=== PATIENT | female | born 1970 | race Hispanic/Latino ===

== ENCOUNTER 2021-10-22 11:57 | Emergency (ER) | payer BC, OTHER ==
[2021-10-22] MEDS ORDERED: FAMOTIDINE 20 MG/2 ML VIAL IV ONE (13:57)
[2021-10-22] MEDS ORDERED: NA CHLORIDE 0.9% 1,000 ML ONE (13:57)
[2021-10-22] MEDS ORDERED: ONDANSETRON 4 MG/2 ML VIAL ONE (13:57)
[2021-10-22 14:13] LABS: Absolute Lymphocytes (CBC) 0.8 K/uL (0.7-4.9); Hematocrit 43.6 % (36.0-45.0); Lymphocytes % 16.8 % (15.3-44.8); RBC Red Blood Cell Count 4.99 M/uL (3.86-4.86)
[2021-10-22 14:17] LABS: Protime INR 1.12
[2021-10-22 14:30] LABS: ALT/SGPT 94 U/L (12-78); AST/SGOT 34 U/L (15-37); Albumin 3.8 g/dL (3.4-5.0); Alkaline Phosphatase 189 U/L (45-117); BUN Blood Urea Nitrogen 13 mg/dL (7-18); Bicarbonate 28 mmol/L (21-32); Bilirubin Direct 0.1 mg/dL (0-0.2); Bilirubin Total 0.3 mg/dL (0.2-1.0); Glucose Level 135 mg/dL (74-106); Lipase 70 U/L (73-393); Magnesium 2.6 mg/dL (1.8-2.4); Potassium 3.7 mmol/L (3.5-5.1); Protein, Total 8.5 g/dL (6.4-8.2); Sodium Level 139 mmol/L (136-145)
--- NOTE | 2021-10-22 14:36 | RAD REPORT ---
EXAM DESCRIPTION: RAD - Chest Single View - 10/22/2021 2:27 pm CLINICAL HISTORY: COUGH COMPARISON: None TECHNIQUE: AP portable chest image was obtained 10/22/2021 2:27 pm . FINDINGS: Lungs are clear. Heart and vasculature are normal. No measurable pleural effusion and no p neumothorax. No acute bony abnormality seen. No acute aortic findings suspected. IMPRESSION: No acute cardiopulmonary process.
[2021-10-22 14:40] LABS: Troponin High Sensitivity < 3.0 pg/mL (<58.9)
[2021-10-22 15:46] LABS: SARS-COV-2 RT PCR NEGATIVE (NEGATIVE)
[2021-10-22 16:50] LABS: Urine Blood Trace-intact (Negative); Urine Glucose Negative (Negative); Urine Protein Negative (Negative); Urine Specific Gravity >=1.030 (1.005-1.030)
[2021-10-22 16:57] LABS: Urine Bacteria <20 /HPF (<20); Urine Mucus 1+ /HPF (NONE SEEN); Urine RBC <5 /HPF (NONE SEEN)
[2021-10-22 16:58] LABS: Urine Amorphous Sediment TRACE /HPF (NONE SEEN)
--- NOTE | 2021-10-22 17:16 | RAD REPORT ---
EXAM DESCRIPTION: CT - Abdomen Pelvis W Contrast - 10/22/2021 4:57 pm CLINICAL HISTORY: NAUSEA / VOMITING COMPARISON: No comparisons TECHNIQUE: Biphasic, helical CT imaging of the abdomen and pelvis was performed following 100 ml non -ionic IV contrast. No oral contrast administered. All CT scans are performed using dose optimization technique as appropriate and may include automated exposure control or mA/KV adjustment according to patient size. FINDINGS: No suspicious findings in the lung bases. The liver, spleen, and pancreas show no suspicious findings. Gallbladder and biliary tree are also wi thout suspicious finding. Symmetric renal function is seen with no hydronephrosis or suspicious renal mass. No pyelonephritis o r acute parenchymal process. No bladder abnormalities. No adrenal abnormalities. Uterus and ovaries s how no suspicious findings. No dilated bowel loops or bowel wall thickening. Appendix is normal. Patient has prominent for age si gmoid diverticulosis but no diverticulitis finding. Mild mucosal level inflammatory changes can be oc cult on CT imaging. A few small sub centimeter mesenteric lymph nodes are present. No free air, free fluid or inflammatory stranding. No hernia, mass or bulky lymphadenopathy. No suspicious bony findings. IMPRESSION: Contrast enhanced CT abdomen and pelvis showing no acute or emergent finding.
--- NOTE | 2021-10-22 17:50 | ER ---
Nurse's Notes [facility] Name: Maya Mac Age: 51 yrs Sex: Female : 1970 Arrival Date: 10/22/2021 Time: 11:59 Bed 20 Private MD: Robert Hameed Diagnosis: Nausea with vomiting, unspecified;Influenza due to identified novel influenza A virus Presentation: 10/22 12:19 Chief complaint: Patient states: "I've been feeling weak for a few days and im having ab2 n/v." Pt denies any pain. Pt denies fever/chills. Coronavirus screen: Vaccine status: Patient reports receiving the 2nd dose of the covid vaccine. Client denies travel out of the [place] in the last 14 days. nausea, vomiting. Client presents with at least one sign or symptom that may indicate coronavirus-19. Standard/surgical mask placed on the client. Provider contacted for isolation considerations. Ebola Screen: Patient negative for fever greater than or equal to 101.5 degrees Fahrenheit, and additional compatible Ebola Virus Disease symptoms Patient denies exposure to infectious person. Patient denies travel to an Ebola-affected area in the 21 days before illness onset. No symptoms or risks identified at this time. Initial Sepsis Screen: Does the patient meet any 2 criteria? No. Patient's initial sepsis screen is negative. Does the patient have a suspected source of infection? No. Patient's initial sepsis screen is negative. Risk Assessment: Do you want to hurt yourself or someone else? Patient reports no desire to harm self or others. Onset of symptoms is unknown. 12:19 Method Of Arrival: Wheelchair ab2 12:19 Acuity: NAIDA 3 ab2 Triage Assessment: 12:23 General: Appears in no apparent distress. uncomfortable, Behavior is calm, cooperative, ab2 appropriate for age. Pain: Denies pain. Neuro: Level of Consciousness is awake, alert, obeys commands, Oriented to person, place, time, situation, Appropriate for age. Cardiovascular: No deficits noted. Denies chest pain, shortness of breath, Patient's skin is warm and dry. Respiratory: Airway is patent Respiratory effort is even, unlabored, Respiratory pattern is regular, symmetrical. GI: Pt is actively vomiting clear fluid, Reports intolerance of fluids, intolerance of food, nausea, vomiting. Historical: - Allergies: 12:22 No Known Allergies; ab2 - PMHx: 12:22 None; ab2 - PSHx: 12:22 None; ab2 - Immunization history:: Adult Immunizations up to date. - Social history:: Smoking status: Patient denies any tobacco usage or history of. Screenin:41 Abuse screen: Denies threats or abuse. Denies injuries from another. Nutritional camacho screening: No deficits noted. Tuberculosis screening: No symptoms or risk factors identified. Fall Risk None identified. Assessment: 13:41 General: Appears in no apparent distress. Behavior is calm, cooperative. Pain: camacho Complains of pain in abdomen. GI: Reports nausea, vomiting. Vital Signs: 12:19 BP 122 / 68; Pulse 92; Resp 18; Temp 98.8(TE); Pulse Ox 98% on R/A; Weight 102.06 kg; ab2 Height 5 ft. 3 in. (160.02 cm); Pain 0/10; 14:10 BP 128 / 75; Pulse 86; Resp 17; Pulse Ox 98% on R/A; camacho 15:49 BP 111 / 63; Pulse 79; Resp 16; Pulse Ox 99% on R/A; camacho 12:19 Body Mass Index 39.86 (102.06 kg, 160.02 cm) ab2 ED Course: 11:59 Patient arrived in ED. as 12:02 Robert Hameed DO is Private Physician. as 12:22 Triage completed. ab2 12:23 Arm band placed on left wrist. ab2 13:11 Albino Campos PA is PHCP. cp 13:11 Balwinder Chandler MD is Attending Physician. cp 13:41 Patient has correct armband on for positive identification. Bed in low position. camacho 13:41 No provider procedures requiring assistance completed. camacho 14:09 Basic Metabolic Panel Sent. camacho 14:09 CBC with Diff Sent. camacho 14:09 LFT's Sent. camacho 14:09 Magnesium Sent. camacho 14:09 PT-INR Sent. camacho 14:10 Troponin HS Sent. camacho 14:28 XRAY Chest (1 view) In Process Unspecified. EDMS 14:36 EKG done, by member of technical staff. 16:17 Elizabeth Rees, RN is Primary Nurse. camacho 16:59 CT Abd/Pelvis - IV Contrast Only In Process Unspecified. EDMS 17:49 Robert Hameed DO is Referral Physician. cp 18:23 IV discontinued, intact, Pressure dressing applied. camacho Administered Medications: 14:08 Drug: Zofran (Ondansetron) 4 mg Route: IVP; Site: right antecubital; camacho 14:10 Follow up: Response: No adverse reaction camacho 14:08 Drug: Pepcid (famotidine) 20 mg Route: IVP; Site: right antecubital; camacho 14:10 Follow up: Response: No adverse reaction camacho 14:09 Drug: NS 0.9% 1000 ml Route: IV; Rate: 1000 ml/hr; Site: right antecubital; camacho Outcome: 17:49 Discharge ordered by MD. cp 18:22 Discharged to home camacho 18:22 Condition: good 18:22 Discharge instructions given to patient, Prescriptions given X 1. 18:23 Patient left the ED. camacho Signatures: Dispatcher [employer] EDVT Maeve Hook Corey, PA PA cp Marsh, Wendy wm Au-Stager, Heather, RN RN camacho Holden Woodson
--- NOTE | 2021-10-22 17:50 | EDPHYS ---
Physician Documentation [facility] Name: Maya Mac Age: 51 yrs Sex: Female : 1970 Arrival Date: 10/22/2021 Time: 11:59 Bed 20 Private MD: Robert Hameed ED Physician Balwinder Chandler HPI: 10/22 14:00 This 51 yrs old Female presents to ER via Wheelchair with complaints of cp Nausea/Vomiting, Weakness. 14:00 The patient presents to the emergency department with nausea, that is moderate, cp vomiting, that is intermittent. Onset: The symptoms/episode began/occurred this morning. Possible causes: unknown. Associated signs and symptoms: Pertinent positives: anorexia, cough, sore throat, rhinorrhea, Pertinent negatives: constipation, diarrhea, fever. Severity of symptoms: in the emergency department the symptoms are unchanged. Historical: - Allergies: 12:22 No Known Allergies; ab2 - PMHx: 12:22 None; ab2 - PSHx: 12:22 None; ab2 - Immunization history:: Adult Immunizations up to date. - Social history:: Smoking status: Patient denies any tobacco usage or history of. ROS: 14:05 Constitutional: Positive for poor PO intake, Negative for body aches, chills, fever. cp 14:05 Eyes: Negative for injury, pain, redness, and discharge. cp 14:05 ENT: Positive for rhinorrhea, sore throat. 14:05 Cardiovascular: Negative for chest pain, edema, palpitations. 14:05 Respiratory: Positive for cough, Negative for shortness of breath, wheezing. 14:05 Abdomen/GI: Positive for nausea and vomiting, anorexia, Negative for abdominal pain, diarrhea, constipation, hematemesis. 14:05 : Negative for urinary symptoms. 14:05 Skin: Negative for rash. 14:05 Neuro: Positive for weakness, Negative for altered mental status, headache, loss of consciousness, syncope. 14:05 All other systems are negative. Exam: 14:10 Constitutional: The patient appears in no acute distress, alert, awake, cp non-diaphoretic, non-toxic, well developed, well nourished, obese. 14:10 Head/Face: Normocephalic, atraumatic. cp 14:10 Eyes: Periorbital structures: appear normal, Conjunctiva: normal, no exudate, no injection, Sclera: no appreciated abnormality, Lids and lashes: appear normal, bilaterally. 14:10 ENT: External ear(s): are unremarkable, Nose: is normal, Mouth: Lips: moist, Oral mucosa: pink and intact, moist, Posterior pharynx: Airway: no evidence of obstruction, patent. 14:10 Chest/axilla: Inspection: normal. 14:10 Cardiovascular: Rate: normal, Rhythm: regular, Edema: is not appreciated, JVD: is not appreciated. 14:10 Respiratory: the patient does not display signs of respiratory distress, Respirations: normal, no use of accessory muscles, no retractions, labored breathing, is not present, Breath sounds: are clear throughout, no decreased breath sounds, no stridor, no wheezing. 14:10 Abdomen/GI: Inspection: abdomen appears normal, Palpation: abdomen is soft and non-tender, in all quadrants. 14:10 Neuro: Orientation: to person, place \\T\\ time. Mentation: is normal, Motor: moves all fours, strength is normal, Sensation: is normal. Vital Signs: 12:19 BP 122 / 68; Pulse 92; Resp 18; Temp 98.8(TE); Pulse Ox 98% on R/A; Weight 102.06 kg; ab2 Height 5 ft. 3 in. (160.02 cm); Pain 0/10; 14:10 BP 128 / 75; Pulse 86; Resp 17; Pulse Ox 98% on R/A; camacho 15:49 BP 111 / 63; Pulse 79; Resp 16; Pulse Ox 99% on R/A; camacho 12:19 Body Mass Index 39.86 (102.06 kg, 160.02 cm) ab2 MDM: 13:39 Patient medically screened. cp 14:00 Differential diagnosis: Nonspecific abd pain, gastritis, cholecystitis, pancreatitis, cp viral gastroenteritis, gastroenteritis, influenza, COVID-19. 17:49 Data reviewed: vital signs, nurses notes, lab test result(s), EKG, radiologic studies, cp CT scan, plain films, and as a result, I will discharge patient. 17:49 Test interpretation: by ED physician or midlevel provider: ECG, plain radiologic cp studies. Counseling: I had a detailed discussion with the patient and/or guardian regarding: the historical points, exam findings, and any diagnostic results supporting the discharge/admit diagnosis, lab results, radiology results, to return to the emergency department if symptoms worsen or persist or if there are any questions or concerns that arise at home. Response to treatment: the patient's symptoms have markedly improved after treatment. ED course: VSS. Nausea markedly improved and vomiting resolved. Will discharge to home for continued monitoring. 10/22 13:49 Order name: Basic Metabolic Panel; Complete Time: 15:05 cp 10/22 15:06 Interpretation: Normal except: GLUC 135; GFR 85. cp 10/22 13:49 Order name: CBC with Diff; Complete Time: 14:39 cp 10/22 15:07 Interpretation: Normal except: RBC 4.99; AIMEE% 76.4. cp 10/22 13:49 Order name: LFT's; Complete Time: 15:05 cp 10/22 15:08 Interpretation: Normal except: ALT 94; ALK 189; TP 8.5; GLOB 4.7; A/G 0.8. cp 10/22 13:49 Order name: Magnesium; Complete Time: 15:05 cp 10/22 17:13 Interpretation: MG 2.6; Reviewed. cp 10/22 13:49 Order name: PT-INR; Complete Time: 14:39 cp 10/22 13:49 Order name: Troponin HS; Complete Time: 15:05 cp 10/22 13:49 Order name: XRAY Chest (1 view); Complete Time: 14:39 cp 10/22 13:49 Order name: Lipase; Complete Time: 15:05 cp 10/22 13:49 Order name: COVID-19/FLU A+B (Document "Date of Onset" if Symptomatic); Complete Time: cp 16:09 10/22 13:49 Order name: Urine Microscopic Only; Complete Time: 17:13 cp 10/22 16:09 Order name: CT Abd/Pelvis - IV Contrast Only; Complete Time: 17:39 cp 10/22 16:50 Order name: Urine Dipstick-Ancillary; Complete Time: 17:13 EDMS 10/22 17:00 Order name: Urine --Ancillary (enter results) em1 10/22 13:49 Order name: EKG; Complete Time: 13:50 cp 10/22 13:49 Order name: Cardiac monitoring; Complete Time: 14:09 cp 10/22 13:49 Order name: EKG - Nurse/Tech; Complete Time: 14:37 10/22 13:49 Order name: IV Saline Lock; Complete Time: 14:09 10/22 13:49 Order name: Labs collected and sent; Complete Time: 14:09 10/22 13:49 Order name: O2 Per Protocol; Complete Time: 14:09 10/22 13:49 Order name: O2 Sat Monitoring; Complete Time: 14:09 10/22 13:49 Order name: Urine Dipstick-Ancillary (obtain specimen); Complete Time: 16:58 cp 10/22 13:49 Order name: Urine Test (obtain specimen); Complete Time: 16:55 10/22 17:40 Order name: PO challenge: juice and crackers cp Administered Medications: 14:08 Drug: Zofran (Ondansetron) 4 mg Route: IVP; Site: right antecubital; camacho 14:10 Follow up: Response: No adverse reaction camacho 14:08 Drug: Pepcid (famotidine) 20 mg Route: IVP; Site: right antecubital; camacho 14:10 Follow up: Response: No adverse reaction camacho 14:09 Drug: NS 0.9% 1000 ml Route: IV; Rate: 1000 ml/hr; Site: right antecubital; camacho Disposition: 10/23 09:00 Co-signature as Attending Physician, Balwinder Chandler MD. rn Disposition Summary: 10/22/21 17:49 Discharge Ordered Location: Home cp Problem: new cp Symptoms: have improved cp Condition: Stable cp Diagnosis - Nausea with vomiting, unspecified cp - Influenza due to identified novel influenza A virus cp Followup: cp - With: Robert Hameed DO - When: 2 - 3 days - Reason: Recheck today's complaints Discharge Instructions: - Discharge Summary Sheet cp - Influenza, Adult cp - Nausea and Vomiting, Adult cp Forms: - Medication Reconciliation Form cp - Thank You Letter cp - Antibiotic Education cp - Prescription Opioid Use cp Prescriptions: - Zofran 4 mg Oral Tablet - take 1 tablet by ORAL route every 12 hours As needed; 20 tablet; Refills: 0, cp Product Selection Permitted Signatures: Dispatcher [employer] Balwinder Moya MD MD rn Page, Corey, PA PA cp Au-Stager, Heather, RN RN ha Bleininger, Alexis ab2 Corrections: (The following items were deleted from the chart) 10/22 14:34 14:33 This 51 yrs old Female presents to ER via Wheelchair with complaints of cp Nausea/Vomiting, Weakness. cp
[2021-10-22 20:02] LABS: Urine Specific Gravity/Preg >1.030 (1.005-1.030)
[2021-10-22 20:05] VITALS: TEMP 98.8
[2021-10-22 20:07] VITALS: BP 111/63; O2SAT 99
--- NOTE | 2021-10-25 11:20 | EKG ---
Test Date: 2021-10-22 Test Time: 14:33:29 Light Out Examiner: WM MEASUREMENT RESULTS: Intervals: Rate: 64 HI: 136 QRSD: 72 QT: 434 QTc: 447 [place]: P: 51 HI: 136 QRS: -4 T: -24 INTERPRETIVE STATEMENTS: Normal sinus rhythm Minimal voltage criteria for LVH, may be normal variant Cannot rule out Inferior infarct, age undetermined Abnormal ECG No previous ECG available for comparison Electronically Signed On 10-25-21 11:13:30 CDT by Hermann Kolb
== END 2021-10-22 18:23 | disposition home or self-care (01) ==
LOC: ER 11:57
DX: J10.1 Influenza due to other identified influenza virus with other respiratory manifestations (principal); Z20.822 Contact with and (suspected) exposure to COVID-19
CPT/HCPCS: 93005; 85025; 80048; 36415; 83735; 81025; 85610; 80076; 84484; 83690; 0240U; 74177; 71045; 96375; 96374; 99284; Q9967; J7030; J2405; 81003; 81015

== ENCOUNTER 2021-10-24 11:58 | Emergency (ER) | payer BC, OTHER ==
[2021-10-24 12:46] LABS: Absolute Lymphocytes (CBC) 1.5 K/uL (0.7-4.9); Hematocrit 41.9 % (36.0-45.0); Lymphocytes % 30.1 % (15.3-44.8); MPV 9.7 fL (7.6-11.3); RBC Red Blood Cell Count 4.83 M/uL (3.86-4.86)
[2021-10-24] MEDS ORDERED: NA CHLORIDE 0.9% 1,000 ML ONE ×2 (12:54→15:02)
[2021-10-24 12:56] LABS: Urine Blood Trace-lysed (Negative); Urine Glucose Negative (Negative); Urine Protein Trace (Negative); Urine Specific Gravity 1.025 (1.005-1.030)
[2021-10-24 12:58] LABS: Potassium 3.2 mmol/L (3.5-5.1)
[2021-10-24 14:08] LABS: Urine Bacteria 20-50 /HPF (<20); Urine Mucus 1+ /HPF (NONE SEEN); Urine RBC <5 /HPF (NONE SEEN)
[2021-10-24] MEDS ORDERED: NITROFURAN MACRO 100 MG CAP PO ONE (14:16)
[2021-10-24] MEDS ORDERED: POTASSIUM CL SA 10 MEQ TAB PO ONE (14:16)
[2021-10-24] MEDS ORDERED: MECLIZINE HCL 12.5 MG TAB ONE (14:18)
--- NOTE | 2021-10-24 15:36 | EDPHYS ---
Physician Documentation [facility] Name: Maya Mac Age: 51 yrs Sex: Female : 1970 Arrival Date: 10/24/2021 Time: 11:59 Bed 12 Private MD: ED Physician Balwinder Chandler HPI: 10/24 13:10 This 51 yrs old Female presents to ER via Wheelchair with complaints of kb dehydration. 13:10 The patient presents with dizziness, generalized weakness. Onset: The symptoms/episode kb began/occurred 1 week(s) ago. Context: occurred at home. Modifying factors: The symptoms are alleviated by nothing, the symptoms are aggravated by opening eyes, movement. Associated signs and symptoms: The patient has no apparent associated signs or symptoms. Severity of symptoms: At their worst the symptoms were moderate in the emergency department the symptoms are unchanged. Patient's baseline: Neuro: alert and fully oriented, Motor: no deficits, Ambulation: walks without assistance, Speech: normal. The patient has not experienced similar symptoms in the past. The patient has been recently seen by a physician:. Pt reports she has had dizziness, weakness, nausea and vomiting for a week. Was diagnosed with the flu and dehydration on Monday and given something for nausea. States she hasn't had any n/v/d since Monday, but is still having dizziness and weakness. 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 - Social history:: Smoking status: Patient denies any tobacco usage or history of. ROS: 13:07 Respiratory: Negative for shortness of breath, cough, wheezing, and pleuritic chest kb pain. 13:07 Constitutional: Positive for fatigue, malaise. 13:07 Neuro: Positive for dizziness, weakness. 13:07 All other systems are negative. Exam: 12:48 Constitutional: This is a well developed, well nourished patient who is awake, alert, kb and in no acute distress. Head/Face: Normocephalic, atraumatic. ENT: Moist Mucous membranes Cardiovascular: Regular rate and rhythm with a normal S1 and S2. No gallops, murmurs, or rubs. No pulse deficits. Respiratory: Respirations even and unlabored. No increased work of breathing. Talking in full sentences Skin: Warm, dry with normal turgor. Normal color. MS/ Extremity: Pulses equal, no cyanosis. Neurovascular intact. Full, normal range of motion. Neuro: Awake and alert, GCS 15, oriented to person, place, time, and situation. Moves all extremities. Normal gait. Psych: Awake, alert, with orientation to person, place and time. Behavior, mood, and affect are within normal limits. 12:48 ECG was reviewed by the Attending Physician. Vital Signs: 12:03 BP 151 / 75; Pulse 74; Resp 15; Temp 97; Pulse Ox 100% ; Weight 102.06 kg; Height 5 ft. jl7 2 in. (157.48 cm); Pain 0/10; 12:22 BP 135 / 81 RA Supine; Pulse 72 RA; Pulse Ox 100% on R/A; ld1 12:24 BP 135 / 81 RA Sitting; Pulse 77; Pulse Ox 100% on R/A; ld1 12:26 BP 144 / 88 RA Standing; Pulse 80 RA; Pulse Ox 100% on R/A; ld1 14:20 BP 139 / 82; Pulse 79; Resp 16; Pulse Ox 100% on R/A; ld1 15:02 BP 124 / 74; Pulse 82; Resp 17; Pulse Ox 100% ; ld1 12:03 Body Mass Index 41.15 (102.06 kg, 157.48 cm) jl7 MDM: 12:06 Patient medically screened. kb 13:07 Data reviewed: vital signs, nurses notes. Data interpreted: Pulse oximetry: on room air kb is 100 %. Interpretation: normal. 15:35 Counseling: I had a detailed discussion with the patient and/or guardian regarding: the kb historical points, exam findings, and any diagnostic results supporting the discharge/admit diagnosis, lab results, the need for outpatient follow up, a family practitioner, to return to the emergency department if symptoms worsen or persist or if there are any questions or concerns that arise at home. 10/24 12:06 Order name: CBC with Diff; Complete Time: 12:49 kb 10/24 12:06 Order name: Basic Metabolic Panel; Complete Time: 13:06 kb 10/24 12:56 Order name: Urine Dipstick-Ancillary; Complete Time: 13:06 EDMS 10/24 13:41 Order name: Urine Microscopic Only; Complete Time: 14:09 kb 10/24 14:11 Order name: Urine Culture EDMS 10/24 12:06 Order name: IV Start; Complete Time: 12:37 kb 10/24 12:06 Order name: EKG; Complete Time: 12:07 kb 10/24 12:06 Order name: EKG - Nurse/Tech; Complete Time: 12:37 kb 10/24 12:06 Order name: Orthostatics; Complete Time: 12:37 kb 10/24 12:06 Order name: Urine Dipstick-Ancillary (obtain specimen); Complete Time: 12:56 kb EC:48 Rate is 70 beats/min. Rhythm is regular. QRS [place] is Normal. OR interval is normal at kb 140 msec. QRS interval is normal at 76 msec. QT interval is normal at 392 msec. Administered Medications: 12:54 Drug: NS 0.9% 1000 ml Route: IV; Rate: 1000 ml; Site: left antecubital; ld1 15:01 Follow up: Response: No adverse reaction; IV Status: Completed infusion; IV Intake: ld1 1000ml 14:18 Drug: Macrobid (nitrofurantoin) 100 mg Route: PO; ld1 15:01 Follow up: Response: No adverse reaction ld1 14:18 Drug: Meclizine 25 mg Route: PO; ld1 15:01 Follow up: Response: No adverse reaction ld1 14:19 Drug: Potassium Chloride 40 mEq Route: PO; ld1 15:01 Follow up: Response: No adverse reaction ld1 15:01 Drug: NS 0.9% 1000 ml Route: IV; Rate: 1000 ml; Site: left antecubital; ld1 Disposition: 17:17 Co-signature as Attending Physician, Balwinder Chandler MD. rn Disposition Summary: 10/24/21 15:36 Discharge Ordered Location: Home kb Condition: Stable kb Diagnosis - UTI/ Urinary tract infection, site not specified kb - Influenza due to identified novel influenza A virus kb - Dizziness and giddiness kb Followup: kb - With: Emergency Department - When: As needed - Reason: Worsening of condition Followup: kb - With: Private Physician - When: 2 - 3 days - Reason: Recheck today's complaints, Continuance of care, Re-evaluation by your physician Discharge Instructions: - Discharge Summary Sheet kb - Urinary Tract Infection, Adult, [id number] kb - Influenza, Adult, [id number] kb - Dizziness, [id number] kb Forms: - Medication Reconciliation Form kb - Thank You Letter kb - Antibiotic Education kb - Prescription Opioid Use kb - Work release form eb Prescriptions: - Meclizine 25 mg Oral Tablet - take 1 tablet by ORAL route every 8 hours As needed; 15 tablet; Refills: 0, kb Product Selection Permitted - Macrobid 100 mg Oral Capsule - take 1 capsule by ORAL route every 12 hours for 10 days; 20 capsule; Refills: kb 0, Product Selection Permitted Signatures: Dispatcher [employer] Tatiana Pelaez, [employer]-C [employer]-Balwinder Howe MD MD rn Leal, Jahala RN RN jl7 Chhaya Bullard RN RN ld1
--- NOTE | 2021-10-24 15:36 | ER ---
Nurse's Notes [facility] [place] [address] Name: Maya Mac Age: 51 yrs Sex: Female : 1970 Arrival Date: 10/24/2021 Time: 11:59 Bed 12 Private MD: Diagnosis: UTI/ Urinary tract infection, site not specified;Influenza due to identified novel influenza A virus;Dizziness and giddiness Presentation: 10/24 12:03 Chief complaint: Patient states: Seen on Monday and dx with the flu and dehydration, jl7 discharged home and continued symptoms with dizziness and weakness. Coronavirus screen: Client presents with at least one sign or symptom that may indicate coronavirus-19. Standard/surgical mask placed on the client. Provider contacted for isolation considerations. Ebola Screen: No symptoms or risks identified at this time. Initial Sepsis Screen: Does the patient meet any 2 criteria? No. Patient's initial sepsis screen is negative. Does the patient have a suspected source of infection? No. Patient's initial sepsis screen is negative. Risk Assessment: Do you want to hurt yourself or someone else? Patient reports no desire to harm self or others. Onset of symptoms was November 17, 2021. Care prior to arrival: None. 12:03 Method Of Arrival: Wheelchair jl7 12:03 Acuity: NAIDA 3 jl7 Triage Assessment: 12:06 General: Appears in no apparent distress. uncomfortable, Behavior is calm, cooperative, jl7 appropriate for age. Pain: Denies pain. 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 - Social history:: Smoking status: Patient denies any tobacco usage or history of. Screenin:42 Abuse screen: Denies threats or abuse. Denies injuries from another. Nutritional ld1 screening: No deficits noted. Tuberculosis screening: No symptoms or risk factors identified. Fall Risk None identified. Assessment: 12:38 General: Appears in no apparent distress. comfortable, Behavior is calm, cooperative, ld1 appropriate for age. Pain: Denies pain. Neuro: Level of Consciousness is awake, alert, obeys commands, Oriented to person, place, time, situation. Neuro: Reports dizziness. Cardiovascular: Capillary refill < 3 seconds Patient's skin is warm and dry. Rhythm is regular. Respiratory: Airway is patent Respiratory effort is even, unlabored. GI: Abdomen is round non-distended. : No signs and/or symptoms were reported regarding the genitourinary system. EENT: No signs and/or symptoms were reported regarding the EENT system. Derm: No signs and/or symptoms reported regarding the dermatologic system. Musculoskeletal: No signs and/or symptoms reported regarding the musculoskeletal system. 14:20 Reassessment: Patient appears in no apparent distress at this time. Patient and/or ld1 family updated on plan of care and expected duration. Pain level reassessed. Patient is alert, oriented x 3, equal unlabored respirations, skin warm/dry/pink. Vital Signs: 12:03 BP 151 / 75; Pulse 74; Resp 15; Temp 97; Pulse Ox 100% ; Weight 102.06 kg; Height 5 ft. jl7 2 in. (157.48 cm); Pain 0/10; 12:22 BP 135 / 81 RA Supine; Pulse 72 RA; Pulse Ox 100% on R/A; ld1 12:24 BP 135 / 81 RA Sitting; Pulse 77; Pulse Ox 100% on R/A; ld1 12:26 BP 144 / 88 RA Standing; Pulse 80 RA; Pulse Ox 100% on R/A; ld1 14:20 BP 139 / 82; Pulse 79; Resp 16; Pulse Ox 100% on R/A; ld1 15:02 BP 124 / 74; Pulse 82; Resp 17; Pulse Ox 100% ; ld1 12:03 Body Mass Index 41.15 (102.06 kg, 157.48 cm) jl7 ED Course: 11:59 Patient arrived in ED. as 12:02 Tatiana Roach FNP-C is PHCP. kb 12:02 Balwinder Chandler MD is Attending Physician. kb 12:06 Triage completed. jl7 12:06 Arm band placed on right wrist. jl7 12:37 Chhaya Bullard, DEEPAK is Primary Nurse. ld1 12:47 Inserted saline lock: 20 gauge in left antecubital area, using aseptic technique. Blood zm collected. 12:55 Urine collected: clean catch specimen, clear. zm 12:58 Basic Metabolic Panel Sent. zm 16:42 Patient has correct armband on for positive identification. Placed in gown. Bed in low ld1 position. Call light in reach. Side rails up X2. pvc monitor on. Pulse ox on. NIBP on. Door closed. Noise minimized. Warm blanket given. 16:42 No provider procedures requiring assistance completed. IV discontinued, intact, ld1 bleeding controlled, No redness/swelling at site. Administered Medications: 12:54 Drug: NS 0.9% 1000 ml Route: IV; Rate: 1000 ml; Site: left antecubital; ld1 15:01 Follow up: Response: No adverse reaction; IV Status: Completed infusion; IV Intake: ld1 1000ml 14:18 Drug: Macrobid (nitrofurantoin) 100 mg Route: PO; ld1 15:01 Follow up: Response: No adverse reaction ld1 14:18 Drug: Meclizine 25 mg Route: PO; ld1 15:01 Follow up: Response: No adverse reaction ld1 14:19 Drug: Potassium Chloride 40 mEq Route: PO; ld1 15:01 Follow up: Response: No adverse reaction ld1 15:01 Drug: NS 0.9% 1000 ml Route: IV; Rate: 1000 ml; Site: left antecubital; ld1 Intake: 15:01 IV: 1000ml; Total: 1000ml. ld1 Outcome: 15:36 Discharge ordered by . kb 16:43 Discharged to home ambulatory, with family. ld1 16:43 Condition: stable 16:43 Discharge instructions given to patient, family, Instructed on discharge instructions, follow up and referral plans. medication usage, Demonstrated understanding of instructions, follow-up care, medications, Prescriptions given X 2. 16:43 Patient left the ED. ld1 Signatures: Tatiana Roach, RAFA-C RAFA-Maeve Shah Jahala RN RN jl7 Chhaya Bullard RN RN ld1 Alice Hook
[2021-10-24 17:34] VITALS: TEMP 97; O2SAT 100
[2021-10-24 17:40] VITALS: BP 124/74
--- NOTE | 2021-10-25 11:14 | EKG ---
Test Date: 2021-10-24 Test Time: 12:25:46 Layout Mechanic: TM MEASUREMENT RESULTS: Intervals: Rate: 70 NM: 140 QRSD: 76 QT: 392 QTc: 423 [place]: P: 56 NM: 140 QRS: -1 T: 26 INTERPRETIVE STATEMENTS: Normal sinus rhythm Minimal voltage criteria for LVH, may be normal variant Borderline ECG Compared to ECG 10/22/2021 14:33:29 Myocardial infarct finding no longer present Electronically Signed On 10-25-21 11:12:17 CDT by Hermann Kolb
== END 2021-10-24 16:43 | disposition home or self-care (01) ==
LOC: ER 11:58
DX: N39.0 Urinary tract infection, site not specified (principal); J09.X9 Influenza due to identified novel influenza A virus with other manifestations; R42 Dizziness and giddiness; I10 Essential (primary) hypertension; E03.9 Hypothyroidism, unspecified
CPT/HCPCS: 96361; 93005; 87088; 85025; 87086; 80048; 36415; 96360; 99284; J8597; J7030 ×2; 81003; 81015